=== PATIENT | male | born 1955 | race Two or more races ===

== ENCOUNTER 2017-11-08 21:04 | Emergency (ER) | payer OTHER ==
--- NOTE | 2017-11-08 21:17 | EDM.PDOC ---
ED HPI GENERAL MEDICAL PROBLEM - General Stated Complaint: NOT FEELING WELL Time Seen by Provider: 11/08/17 21:12 - History of Present Illness INITIAL COMMENTS - FREE TEXT/NARRATIVE: HISTORY AND PHYSICAL: History of present illness: Patient is a 62-year-old male presents with concern of fever chills and body aches with cough over last 3 days he denies chest pain nausea vomiting diarrhea or other concern Review of systems: As per history of present illness and below otherwise all systems reviewed and negative. Past medical history: As per history of present illness and as reviewed below otherwise noncontributory. Surgical history: As per history of present illness and as reviewed below otherwise noncontributory. Social history: No reported history of drug or alcohol abuse. Family history: As per history of present illness and as reviewed below otherwise noncontributory. Physical exam: HEENT: Atraumatic, normocephalic, pupils reactive, negative for conjunctival pallor or scleral icterus, mucous membranes moist, throat clear, neck supple, nontender, trachea midline. Lungs: Clear to auscultation, breath sounds equal bilaterally, chest nontender. Heart: S1S2, regular, negative for clicks, rubs, or JVD. Abdomen: Soft, nondistended, nontender. Negative for masses or hepatosplenomegaly. Negative for costovertebral tenderness. Pelvis: Stable nontender. Genitourinary: Deferred. Rectal: Deferred. Extremities: Atraumatic, negative for cords or calf pain. Neurovascular unremarkable. Neuro: Awake, alert, oriented. Cranial nerves II through XII unremarkable. Cerebellum unremarkable. Motor and sensory unremarkable throughout. Exam nonfocal. Diagnostics: Influenza screen chest x-ray Therapeutics: None Impression: 1 viral syndrome Definitive disposition and diagnosis as appropriate pending reevaluation and review of above. - Related Data Allergies Allergy/AdvReac Type Severity Reaction Status Date / Time No Known Allergies Allergy Verified 11/08/17 21:22 Home Meds: Home Meds . [No Known Home Meds] 11/08/17 [History] ED ROS GENERAL - Review of Systems Review Of Systems: ROS reveals no pertinent complaints other than HPI. ED EXAM, GENERAL - Physical Exam Exam: See Below (See dictation) Course - Vital Signs Last Recorded V/S: Last Vital Signs Temp 38.4 C H 11/08/17 21:20 Pulse 111 H 11/08/17 21:20 Resp 12 11/08/17 21:20 BP 125/69 11/08/17 21:20 Pulse Ox 94 L 11/08/17 21:20 - Orders/Labs/Meds Orders: Active Orders 24 hr Category Date Time Status Chest 1V Frontal [CR] Stat Exams 11/08/17 21:15 Ordered Departure - Departure Time of Disposition: 22:05 Disposition: Home, Self-Care 01 Condition: Good Clinical Impression: Influenza - Discharge Information Referrals: PCP,None [Primary Care Provider] - Additional Instructions: The following information is given to patients seen in the emergency department who are being discharged to home. This information is to outline your options for follow-up care. We provide all patients seen in our emergency department with a follow-up referral. The need for follow-up, as well as the timing and circumstances, are variable depending upon the specifics of your emergency department visit. If you don't have a primary care physician on staff, we will provide you with a referral. We always advise you to contact your personal physician following an emergency department visit to inform them of the circumstance of the visit and for follow-up with them and/or the need for any referrals to a consulting specialist. The emergency department will also refer you to a specialist when appropriate. This referral assures that you have the opportunity for followup care with a specialist. All of these measure are taken in an effort to provide you with optimal care, which includes your followup. Under all circumstances we always encourage you to contact your private physician who remains a resource for coordinating your care. When calling for followup care, please make the office aware that this follow-up is from your recent emergency room visit. If for any reason you are refused follow-up, please contact the [facility] emergency department at and asked to speak to the emergency department charge nurse. [facility] [address] [place] [id number] Push fluids Motrin/Tylenol as directed follow-up primary medical doctor and/or clinic above as needed as discussed and return as needed as discussed. - My Orders Last 24 Hours: My Active Orders 11/08/17 21:15 Chest 1V Frontal [CR] Stat - Assessment/Plan Last 24 Hours: My Active Orders 11/08/17 21:15 Chest 1V [place] [CR] Stat
--- NOTE | 2017-11-10 18:30 | CR ---
EXAM DATE: 11/08/17 PATIENT'S AGE: 62 Patient: PAVAN SANCHES Facility: [place], [place] Site . Site : 1955 Study: XRay Chest [id number]/20/2018 10:15:44 PM Ordering Physician: Demar Trammell Final Report: INDICATION: Chest pain, shortness of breath TECHNIQUE: Chest radiograph 1 view COMPARISON: None FINDINGS: Mediastinum: The heart silhouette is normal in size and morphology. The mediastinum is normal in appearance. Lungs: Trace linear atelectasis noted in the left lung base. No sign of pleural effusion seen. No pneumothorax is identified. Bones and soft tissue: Unremarkable for age. IMPRESSION: 1. No acute cardiopulmonary disease is seen. Dictated by: Manolo Rivas MD @ 11/08/2017 22:26:20 (Electronic Signature) Report Signed by Proxy. JULIA
== END 2017-11-08 22:57 | disposition home or self-care (01) ==
LOC: MW.ED 21:04
DX: J10.1 Influenza due to other identified influenza virus with other respiratory manifestations (principal); B34.9 Viral infection, unspecified
CPT/HCPCS: 71045; 71045-26; 87804; 99283

== ENCOUNTER 2018-02-24 00:46 | Emergency (ER) | payer SELFPAY ==
[2018-02-24] MEDS ORDERED: Albuterol/Ipratropium 3.0-0.5 MG/3 ML Neb Soln ONE (01:11)
[2018-02-24] MEDS ORDERED: predniSONE 20 MG Tab ONE (01:24)
--- NOTE | 2018-02-24 18:46 | CR ---
EXAM DATE: 02/24/18 PATIENT'S AGE: 62 Patient: PAVAN SANCHES Facility: [place] Site . Site : 1955 Study: XRay Chest [id number]/8/2018 1:38:54 AM Ordering Physician: Nellie Final Report: INDICATION: Cough, CP TECHNIQUE: Chest 2 views COMPARISON: November 08, 2017 FINDINGS: Cardiovascular and mediastinum: Heart size and vasculature are normal in caliber and appearance. Mediastinum is within normal limits. Lungs and pleural spaces: No focal consolidation. No sign of pleural effusion. No pneumothorax. Bones and soft tissues: No significant findings. IMPRESSION: No acute cardiopulmonary disease. Dictated by Winston Hairston MD @ 02/24/2018 2:12:03 AM Dictated by: Winston Hairston MD @ 02/24/2018 02:12:10 (Electronic Signature) Report Signed by Proxy. [facility]
== END 2018-02-24 02:25 | disposition home or self-care (01) ==
LOC: MW.ED 00:46
DX: J20.9 Acute bronchitis, unspecified (principal)
CPT/HCPCS: 71046; 99284; A9270; 99283

== ENCOUNTER 2018-03-07 05:39 | Observation (INO) | payer SELFPAY ==
[2018-03-07] MEDS ORDERED: Sodium Chloride 0.9% 1,000 ML IV ONE (05:40)
[2018-03-07] MEDS ORDERED: Albuterol 0.083% 2.5 MG/3 ML Neb Soln NEB ONE (05:40)
[2018-03-07] MEDS ORDERED: Magnesium Sulfate/Water 2 GM in Premix Bag 1 BAG IV ONE (05:40)
[2018-03-07] MEDS ORDERED: methylPREDNISolone Sodium Succinate 125 MG/2 ML SDV IVPUSH ONE ×2 (05:40→05:49)
[2018-03-07] MEDS ORDERED: EPINEPHrine 1 MG/ML SDV IM ONE (05:43)
--- NOTE | 2018-03-07 05:46 | EDM.PDOC ---
<Vincent Martin - Last Filed: 03/07/18 06:49> ED HPI GENERAL MEDICAL PROBLEM - General Chief Complaint: Respiratory Problem Stated Complaint: AMBULANCE Time Seen by Provider: 03/07/18 05:44 Source of Information: Reports: Patient - History of Present Illness INITIAL COMMENTS - FREE TEXT/NARRATIVE: HISTORY AND PHYSICAL: History of present illness: [Patient with asthma like symptoms over the last 5 months after coming from [place] in October presents with respiratory distress he did receive 2 DuoNeb's in the EMS unit he is been seen several times through the ER with his travel from [place] and the chronic wheeze requiring albuterol HFA seems like possible fungal or coccidiosis infection possibly as the patient has no prior history of asthma No fever chills sweats no chest pain he does complain of chest tightness and shortness of breath he is able to speak but has labored breathing no pursed lip breathing or tripoding ] Review of systems: As per history of present illness and below otherwise all systems reviewed and negative. Past medical history: As per history of present illness and as reviewed below otherwise noncontributory. Surgical history: As per history of present illness and as reviewed below otherwise noncontributory. Social history: No reported history of drug or alcohol abuse. Family history: As per history of present illness and as reviewed below otherwise noncontributory. Physical exam: HEENT: Atraumatic, normocephalic, pupils reactive, negative for conjunctival pallor or scleral icterus, mucous membranes moist, throat clear, neck supple, nontender, trachea midline. Lungs: Clear to auscultation but diminished, breath sounds equal bilaterally, chest nontender. Heart: S1S2, regular, negative for clicks, rubs, or JVD. Abdomen: Soft, nondistended, nontender. Negative for masses or hepatosplenomegaly. Negative for costovertebral tenderness. Pelvis: Stable nontender. Genitourinary: Deferred. Rectal: Deferred. Extremities: Atraumatic, negative for cords or calf pain. Neurovascular unremarkable. Neuro: Awake, alert, oriented. Cranial nerves II through XII unremarkable. Cerebellum unremarkable. Motor and sensory unremarkable throughout. Exam nonfocal. Diagnostics: [CBC CMP UA troponin EKG Chest 1 view ] Therapeutics: [ DuoNeb 2 per EMS Solu-Medrol 125 mg IV 2 Epinephrine 0.5 mgIV Magnesium sulfate 2 g IV Continuous albuterol neb 1 L normal saline bolus ] Patient will have to be signed out for final disposition with Dr. Jacobs's lab is pending at this time Impression: Respiratory distress resolved Shortness of breath--improved post above Bilateral wheeze-improved Definitive disposition and diagnosis as appropriate pending reevaluation and review of above. - Related Data Allergies Allergy/AdvReac Type Severity Reaction Status Date / Time No Known Allergies Allergy Verified 02/24/18 06:33 Home Meds: Home Meds . [No Known Home Meds] 11/08/17 [History] Past Medical History - Past Surgical History GI Surgical History: Reports: Appendectomy Social & Family History - Caffeine Use Caffeine Use: Reports: Coffee Course - Vital Signs Last Recorded V/S: Last Vital Signs Temp 98.1 F 03/07/18 10:30 Pulse 89 03/07/18 10:30 Resp 18 03/07/18 10:30 BP 137/84 03/07/18 06:10 Pulse Ox 94 L 03/07/18 10:30 - Orders/Labs/Meds Orders: Active Orders 24 hr Category Date Time Status EKG Documentation Completion [RC] STAT Care 03/07/18 05:40 Active RT Aerosol Therapy [RC] ASDIRECTED Care 03/07/18 05:40 Active RT Aerosol Therapy [RC] ASDIRECTED Care 03/07/18 09:16 Active Chest 1V Frontal [CR] Stat Exams 03/07/18 05:40 Taken CULTURE SPUTUM + SMEAR [RM] Stat Lab 03/07/18 11:22 Ordered UA W/MICROSCOPIC [URIN] Stat Lab 03/07/18 06:32 Ordered Labs: Laboratory Tests 03/07/18 03/07/18 03/07/18 Range/Units 05:50 05:50 06:32 WBC 11.15 H (4.0-11.0) K/uL RBC 5.87 (4.50-5.90) M/uL Hgb 14.7 (13.0-17.0) g/dL Hct 44.4 (38.0-50.0) % MCV 75.6 L (80.0-98.0) fL MCH 25.0 L (27.0-32.0) pg MCHC 33.1 (31.0-37.0) g/dL RDW Std Deviation 41.4 (28.0-62.0) fl RDW Coeff of Roberta 15 (11.0-15.0) % Plt Count 285 (150-400) K/uL MPV 9.50 (7.40-12.00) fL Neut % (Auto) 39.9 L (48.0-80.0) % Lymph % (Auto) 44.6 H (16.0-40.0) % [place] % (Auto) 7.7 (0.0-15.0) % Eos % (Auto) 7.6 H (0.0-7.0) % Baso % (Auto) 0.2 (0.0-1.5) % Neut # (Auto) 4.5 (1.4-5.7) K/uL Lymph # (Auto) 5.0 H (0.6-2.4) K/uL [place] # (Auto) 0.9 H (0.0-0.8) K/uL Eos # (Auto) 0.9 H (0.0-0.7) K/uL Baso # (Auto) 0.0 (0.0-0.1) K/uL Nucleated RBC % 0.0 /100WBC Nucleated RBCs # 0 K/uL Sodium 141 (136-148) mmol/L Potassium 4.1 (3.5-5.1) mmol/L Chloride 106 (98-107) mmol/L Carbon Dioxide 26.5 (21.0-32.0) mmol/L BUN 13 (7.0-18.0) mg/dL Creatinine 1.3 (0.8-1.3) mg/dL Est Cr Clr Drug Dosing TNP Estimated GFR (MDRD) 56.3 ml/min Glucose 150 H (74-106) mg/dL Calcium 9.0 (8.5-10.1) mg/dL Total Bilirubin 0.2 (0.2-1.0) mg/dL AST 21 (15-37) IU/L ALT 26 (14-63) IU/L Alkaline Phosphatase 68 (46-116) U/L Troponin I < 0.050 (0.000-0.056) ng/mL Total Protein 7.2 (6.4-8.2) g/dL Albumin 3.8 (3.4-5.0) g/dL Globulin 3.4 (2.0-3.5) g/dL Albumin/Globulin Ratio 1.1 L (1.3-2.8) Urine Color DARK YELLOW Urine Appearance SLT CLOUDY Urine pH 5.0 (5.0-8.0) Ur Specific [place] >= 1.030 (1.001-1.035) Urine Protein 30 (NEGATIVE) mg/dL Urine Glucose (UA) NEGATIVE (NEGATIVE) mg/dL Urine Ketones NEGATIVE (NEGATIVE) mg/dL Urine Occult Blood NEGATIVE (NEGATIVE) Urine Nitrite NEGATIVE (NEGATIVE) Urine Bilirubin SMALL H (NEGATIVE) Urine Ictotest NEGATIVE Urine Urobilinogen 0.2 (<2.0) EU/dL Ur Leukocyte Esterase NEGATIVE (NEGATIVE) Urine RBC 1-2 (0-2/HPF) Urine WBC 3-5 (0-5/HPF) Ur Epithelial Cells RARE (NONE-FEW) Urine Bacteria FEW (NEGATIVE) Meds: Medications Discontinued Medications Generic Name Dose Route Start Last Admin Trade Name Freq PRN Reason Stop Dose Admin Albuterol 2.5 mg 03/07/18 05:40 03/07/18 06:02 Proventil Neb Soln NEB 03/07/18 05:41 2.5 mg ONETIME ONE Administration Albuterol/Ipratropium 3 ml 03/07/18 09:16 03/07/18 09:39 Duoneb 3.0-0.5 Mg/3 Ml NEB 03/07/18 09:17 3 ml ONETIME ONE Administration Epinephrine HCl 0.5 mg 03/07/18 05:43 03/07/18 05:46 Adrenalin IM 03/07/18 05:44 0.5 mg ONETIME ONE Administration Magnesium Sulfate 2 gm/ Premix 50 mls @ 25 mls/hr 03/07/18 05:40 03/07/18 05: 58 IV 03/07/18 07:39 25 mls/hr ONETIME ONE Administration Sodium Chloride 1,000 mls @ 999 mls/hr 03/07/18 05:40 03/07/18 05:56 Normal Saline IV 03/07/18 06:40 999 mls/hr STAT ONE Administration Methylprednisolone Sodium Succinate 125 mg 03/07/18 05:40 03/07/18 06:02 Solu-Medrol IVPUSH 03/07/18 05:41 125 mg ONETIME ONE Administration Methylprednisolone Sodium Succinate 125 mg 03/07/18 05:49 03/07/18 06:03 Solu-Medrol IVPUSH 03/07/18 05:50 125 mg ONETIME ONE Administration Departure - Departure Disposition: Admitted As Inpatient 68 Clinical Impression: Respiratory distress - Discharge Information Referrals: PCP,None [Primary Care Provider] - Forms: ED Department Discharge - My Orders Last 24 Hours: My Active Orders 03/07/18 09:16 RT Aerosol Therapy [RC] ASDIRECTED 03/07/18 11:22 CULTURE SPUTUM + SMEAR [RM] Stat - Assessment/Plan Last 24 Hours: My Active Orders 03/07/18 09:16 RT Aerosol Therapy [RC] ASDIRECTED 03/07/18 11:22 CULTURE SPUTUM + SMEAR [RM] Stat <Parish Jacobs - Last Filed: 03/07/18 11:58> ED HPI GENERAL MEDICAL PROBLEM - General Source of Information: Reports: Patient - History of Present Illness INITIAL COMMENTS - FREE TEXT/NARRATIVE: Dr. Jacobs assuming care of patient at 07 100. I've been briefed on patient's current status and closing physical signs and symptoms, labs, and pertinent imaging from Dr. Baltazar. I personally examined patient and reviewed above findings. Chest x-ray did show mild basilar subsegmental atelectasis. Sputum culture ordered for possible coccidioidomycosis. Patient still requiring 1-2 L O2 per nasal canula. Did give additional duo-neb with improvement of symptoms for a limited time but soon after requiring 1-2 L O2 per nasal cannula. 1155- Secondary to the patient continued to desat without 1-2 L of oxygen per nasal cannula. I did consult hospitalist for admission. Hospitalist did accept the patient for ICU observation. I do think this may be some kind of fungal or coccidioidomycosis type of presentation as the patient has had multiple episodes when he travels back and forth between [place] and here. He does have home albuterol but secondary to above observation is warranted. Hospitalist agrees and accepts patient. ED ROS GENERAL - Review of Systems Review Of Systems: See Below ED EXAM, GENERAL - Physical Exam Exam: See Below Departure - Departure Time of Disposition: 11:57 Condition: Fair - My Orders Last 24 Hours: My Active Orders 03/07/18 09:16 RT Aerosol Therapy [RC] ASDIRECTED 03/07/18 11:22 CULTURE SPUTUM + SMEAR [RM] Stat - Assessment/Plan Last 24 Hours: My Active Orders 03/07/18 09:16 RT Aerosol Therapy [RC] ASDIRECTED 03/07/18 11:22 CULTURE SPUTUM + SMEAR [RM] Stat
[2018-03-07 06:51] LABS: CHLORIDE,CL 106 mmol/L (98-107); SODIUM,NA 141 mmol/L (136-148)
[2018-03-07] MEDS ORDERED: Albuterol/Ipratropium 3.0-0.5 MG/3 ML Neb Soln NEB ONE (09:16)
[2018-03-07] MEDS ORDERED: Acetaminophen/HYDROcodone 325-5 MG Tab PO PRN (13:43)
[2018-03-07] MEDS ORDERED: Sodium Chloride 0.9% 2.5 ML Syringe FLUSH PRN (13:43)
[2018-03-07] MEDS ORDERED: Sodium Chloride 0.9% 10 ML Syringe FLUSH PRN (13:43)
[2018-03-07] MEDS ORDERED: Ondansetron 4 MG/2 ML SDV IVPUSH PRN (13:43)
[2018-03-07] MEDS ORDERED: Docusate Sodium 100 MG Cap PO PRN (13:43)
[2018-03-07] MEDS: methylPREDNISolone Sodium Succinate 125 MG/2 ML SDV IVPUSH SCH ×2 (14:13→20:01)
[2018-03-07] MEDS: Benzonatate 100 MG Cap PO PRN ×2 (14:13→22:15)
[2018-03-07] MEDS: Piperacillin/Tazobactam 4.5 GM in Sodium Chloride 0.9% 100 ML IV SCH ×2 (14:19→20:06)
[2018-03-07] MEDS: Fluticasone/Salmeterol 250-50 MCG Inhalation Powder 14/Diskus INH SCH ×2 (15:01→21:23)
[2018-03-07] MEDS: guaiFENesin 100 MG/5 ML Soln 10 ML UD Cup PO PRN (20:11)
--- NOTE | 2018-03-07 21:08 | PCM.HP ---
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 He states he had problems with cough this year and SOB , wheezing , he has cough productive of green phlegm, cough is intractable and patient says his ribs are sore from coughing. His cough started on November 14 , as per patient and is productive of green phlegm.Patient denies smoking. Onset of Symptoms: Reports: Gradual - Related Data Allergies/Adverse Reactions: Allergies Allergy/AdvReac Type Severity Reaction Status Date / Time No Known Allergies Allergy Verified 02/24/18 06:33 Home Medications: Home Meds Albuterol Sulfate [Proair Respiclick] 1 puff INH Q4H PRN 03/07/18 [History] Promethazine HCl/Codeine [Prometh-Codein 6.25-10 mg/5 ml] 10 ml PO BEDTIME PRN 03/07/18 [History] predniSONE [Prednisone] 2 tab PO DAILY 03/07/18 [History] Past Medical History - Past Surgical History GI Surgical History: Reports: Appendectomy Social & Family History - Family History Family Medical History: Noncontributory - Tobacco Use Smoking Status *Q: Never Smoker - Caffeine Use Caffeine Use: Reports: Coffee, Soda - Recreational Drug Use Recreational Drug Use: No H&P Review of Systems - Review of Systems: Review Of Systems: See Below General: Reports: Fatigue. Denies: Fever, Chills, Malaise, Weakness, Night Sweats, Diaphoresis, Decreased Appetite, Weight Loss, Weight Gain HEENT: Reports: No Symptoms Pulmonary: Reports: Shortness of Breath, Wheezing, Cough, Sputum (green) Cardiovascular: Reports: No Symptoms Gastrointestinal: Reports: No Symptoms Genitourinary: Reports: No Symptoms Musculoskeletal: Reports: No Symptoms Skin: Reports: No Symptoms Psychiatric: Reports: No Symptoms Neurological: Reports: No Symptoms Hematologic/Lymphatic: Reports: No Symptoms Immunologic: Reports: No Symptoms Exam - Exam Exam: See Below - Vital Signs Vital Signs: Last Vital Signs Temp 98 F 03/07/18 20:00 Pulse 91 03/07/18 20:00 Resp 20 03/07/18 20:00 BP 97/66 03/07/18 20:00 Pulse Ox 98 03/07/18 20:00 Weight: 184 lb 8 oz - Exam Quality Assessment: Supplemental Oxygen General: Alert, Oriented HEENT: Conjunctiva Clear, EOMI Neck: Supple, Trachea Midline Lungs: Clear to Auscultation, Normal Respiratory Effort Cardiovascular: Regular Rate, Regular Rhythm, Normal S1, Normal S2 GI/Abdominal Exam: Normal Bowel Sounds, Soft, Non-Tender, No Organomegaly (Male) Exam: No Hernia Back Exam: Normal Inspection Extremities: Normal Inspection Skin: Warm, Dry, Intact Neurological: Cranial Nerves Intact Neuro Extensive - Mental Status: Alert, Oriented x3 Psychiatric: Alert, Normal Affect - Patient Data Lab Results Last 24 hrs: Laboratory Results - last 24 hr 03/07/18 03/07/18 03/07/18 Range/Units 05:50 05:50 05:50 WBC 11.15 H (4.0-11.0) K/uL RBC 5.87 (4.50-5.90) M/uL Hgb 14.7 (13.0-17.0) g/dL Hct 44.4 (38.0-50.0) % MCV 75.6 L (80.0-98.0) fL MCH 25.0 L (27.0-32.0) pg MCHC 33.1 (31.0-37.0) g/dL RDW Std Deviation 41.4 (28.0-62.0) fl RDW Coeff of Roberta 15 (11.0-15.0) % Plt Count 285 (150-400) K/uL MPV 9.50 (7.40-12.00) fL Neut % (Auto) 39.9 L (48.0-80.0) % Lymph % (Auto) 44.6 H (16.0-40.0) % [place] % (Auto) 7.7 (0.0-15.0) % Eos % (Auto) 7.6 H (0.0-7.0) % Baso % (Auto) 0.2 (0.0-1.5) % Neut # (Auto) 4.5 (1.4-5.7) K/uL Lymph # (Auto) 5.0 H (0.6-2.4) K/uL [place] # (Auto) 0.9 H (0.0-0.8) K/uL Eos # (Auto) 0.9 H (0.0-0.7) K/uL Baso # (Auto) 0.0 (0.0-0.1) K/uL Nucleated RBC % 0.0 /100WBC Nucleated RBCs # 0 K/uL ESR 1 (0-19) mm/hr ABG pH (7.35-7.45) ABG pCO2 (35-45) mmHG ABG pO2 (75-100) mmHG ABG HCO3 (22-26) mEq/L ABG Total CO2 ABG Base Excess (-2.0-2.0) Sodium 141 (136-148) mmol/L Potassium 4.1 (3.5-5.1) mmol/L Chloride 106 (98-107) mmol/L Carbon Dioxide 26.5 (21.0-32.0) mmol/L BUN 13 (7.0-18.0) mg/dL Creatinine 1.3 (0.8-1.3) mg/dL Est Cr Clr Drug Dosing TNP Estimated GFR (MDRD) 56.3 ml/min Glucose 150 H (74-106) mg/dL Calcium 9.0 (8.5-10.1) mg/dL Total Bilirubin 0.2 (0.2-1.0) mg/dL AST 21 (15-37) IU/L ALT 26 (14-63) IU/L Alkaline Phosphatase 68 (46-116) U/L Troponin I < 0.050 (0.000-0.056) ng/mL Total Protein 7.2 (6.4-8.2) g/dL Albumin 3.8 (3.4-5.0) g/dL Globulin 3.4 (2.0-3.5) g/dL Albumin/Globulin Ratio 1.1 L (1.3-2.8) Urine Color Urine Appearance Urine pH (5.0-8.0) Ur Specific [place] (1.001-1.035) Urine Protein (NEGATIVE) mg/dL Urine Glucose (UA) (NEGATIVE) mg/dL Urine Ketones (NEGATIVE) mg/dL Urine Occult Blood (NEGATIVE) Urine Nitrite (NEGATIVE) Urine Bilirubin (NEGATIVE) Urine Ictotest Urine Urobilinogen (<2.0) EU/dL Ur Leukocyte Esterase (NEGATIVE) Urine RBC (0-2/HPF) Urine WBC (0-5/HPF) Ur Epithelial Cells (NONE-FEW) Urine Bacteria (NEGATIVE) 03/07/18 03/07/18 Range/Units 06:32 14:52 WBC (4.0-11.0) K/uL RBC (4.50-5.90) M/uL Hgb (13.0-17.0) g/dL Hct (38.0-50.0) % MCV (80.0-98.0) fL MCH (27.0-32.0) pg MCHC (31.0-37.0) g/dL RDW Std Deviation (28.0-62.0) fl RDW Coeff of Roberta (11.0-15.0) % Plt Count (150-400) K/uL MPV (7.40-12.00) fL Neut % (Auto) (48.0-80.0) % Lymph % (Auto) (16.0-40.0) % [place] % (Auto) (0.0-15.0) % Eos % (Auto) (0.0-7.0) % Baso % (Auto) (0.0-1.5) % Neut # (Auto) (1.4-5.7) K/uL Lymph # (Auto) (0.6-2.4) K/uL [place] # (Auto) (0.0-0.8) K/uL Eos # (Auto) (0.0-0.7) K/uL Baso # (Auto) (0.0-0.1) K/uL Nucleated RBC % /100WBC Nucleated RBCs # K/uL ESR (0-19) mm/hr ABG pH 7.387 (7.35-7.45) ABG pCO2 34 L (35-45) mmHG ABG pO2 79 (75-100) mmHG ABG HCO3 21 L (22-26) mEq/L ABG Total CO2 18.5 ABG Base Excess -3.6 L (-2.0-2.0) Sodium (136-148) mmol/L Potassium (3.5-5.1) mmol/L Chloride (98-107) mmol/L Carbon Dioxide (21.0-32.0) mmol/L BUN (7.0-18.0) mg/dL Creatinine (0.8-1.3) mg/dL Est Cr Clr Drug Dosing Estimated GFR (MDRD) ml/min Glucose (74-106) mg/dL Calcium (8.5-10.1) mg/dL Total Bilirubin (0.2-1.0) mg/dL AST (15-37) IU/L ALT (14-63) IU/L Alkaline Phosphatase (46-116) U/L Troponin I (0.000-0.056) ng/mL Total Protein (6.4-8.2) g/dL Albumin (3.4-5.0) g/dL Globulin (2.0-3.5) g/dL Albumin/Globulin Ratio (1.3-2.8) Urine Color DARK YELLOW Urine Appearance SLT CLOUDY Urine pH 5.0 (5.0-8.0) Ur Specific [place] >= 1.030 (1.001-1.035) Urine Protein 30 (NEGATIVE) mg/dL Urine Glucose (UA) NEGATIVE (NEGATIVE) mg/dL Urine Ketones NEGATIVE (NEGATIVE) mg/dL Urine Occult Blood NEGATIVE (NEGATIVE) Urine Nitrite NEGATIVE (NEGATIVE) Urine Bilirubin SMALL H (NEGATIVE) Urine Ictotest NEGATIVE Urine Urobilinogen 0.2 (<2.0) EU/dL Ur Leukocyte Esterase NEGATIVE (NEGATIVE) Urine RBC 1-2 (0-2/HPF) Urine WBC 3-5 (0-5/HPF) Ur Epithelial Cells RARE (NONE-FEW) Urine Bacteria FEW (NEGATIVE) Result Diagrams: 03/07/18 05:50 03/07/18 05:50 - Problem List (1) Wheezing on auscultation SNOMED Code(s): 02440113, 201828782 ICD Code: R06.2 - WHEEZING Status: Acute Current Visit: Yes (2) Respiratory distress SNOMED Code(s): 068033251 ICD Code: R06.03 - ACUTE RESPIRATORY DISTRESS Status: Acute Current Visit : Yes (3) Chronic bronchitis with acute exacerbation SNOMED Code(s): 130175907 ICD Code: J20.9 - ACUTE BRONCHITIS, UNSPECIFIED; J42 - UNSPECIFIED CHRONIC BRONCHITIS Status: Acute Current Visit: Yes Problem List Initiated/Reviewed/Updated: Yes Orders Last 24hrs: Active Orders 24 hr Category Date Time Status Admission Status [Patient Status] [ADT] Routine ADT 03/07/18 11:58 Active Oxygen Therapy [RC] PRN Care 03/07/18 13:43 Active RT Aerosol Therapy [RC] ASDIRECTED Care 03/07/18 05:40 Active RT Aerosol Therapy [RC] ASDIRECTED Care 03/07/18 09:16 Active RT Post Treatment Assessment [RC] Click to Edit Care 03/07/18 13:51 Active RT Pre-Treatment Assessment [RC] Click to Edit Care 03/07/18 13:51 Active Up ad Tanja [RC] ASDIRECTED Care 03/07/18 13:43 Active Vital Signs [RC] Q4H Care 03/07/18 13:43 Active Regular Diet [DIET] Diet 03/07/18 Dinner Active Chest 1V Frontal [CR] Stat Exams 03/07/18 05:40 Taken Chest wo Cont [CT] Routine Exams 03/07/18 13:47 Taken CBC WITH AUTO DIFF [HEME] AM Lab 03/08/18 05:11 Ordered COMPREHENSIVE METABOLIC PN,CMP [CHEM] AM Lab 03/08/18 05:11 Ordered CULTURE SPUTUM + SMEAR [RM] Stat Lab 03/07/18 11:22 Ordered UA W/MICROSCOPIC [URIN] Stat Lab 03/07/18 06:32 Ordered Acetaminophen/HYDROcodone [[place] 325-5 MG] Med 03/07/18 13:43 Active 2 tab PO Q4H PRN Benzonatate [Tessalon Perles] Med 03/07/18 13:50 Active 200 mg PO TID PRN Docusate Sodium [Colace] Med 03/07/18 13:43 Active 100 mg PO BID PRN Fluticasone/Salmeterol [Advair Diskus 250-50] Med 03/07/18 14:00 Active 1 puff INH BID Ondansetron [Zofran] Med 03/07/18 13:43 Active 4 mg IVPUSH Q4H PRN Piperacillin/Tazobactam [Piperacil-Tazobact] 4.5 gm Med 03/07/18 14:00 Active Sodium Chloride 0.9% [Normal Saline] 100 ml IV Q6H Sodium Chloride 0.9% [Saline Flush] Med 03/07/18 13:43 Active 10 ml FLUSH ASDIRECTED PRN Sodium Chloride 0.9% [Saline Flush] Med 03/07/18 13:43 Active 2.5 ml FLUSH ASDIRECTED PRN guaiFENesin [Robitussin] Med 03/07/18 13:49 Active 200 mg PO Q6H PRN methylPREDNISolone Sod Succ [Solu-MEDROL] Med 03/07/18 14:00 Active 60 mg IVPUSH Q6H Peripheral IV Insertion Adult [OM.PC] Routine Oth 03/07/18 13:43 Ordered Saline Lock Insert [OM.PC] Routine Oth 03/07/18 13:43 Ordered Sequential Compression Device [OM.PC] Per Unit Routine Oth 03/07/18 13:44 Ordered Resuscitation Status Routine Resus Stat 03/07/18 13:43 Ordered Medication Orders Hydrocodone Bitart/Acetaminophen ([place] 325-5 Mg) 2 tab PO Q4H PRN PRN Reason: Pain (moderate 4-6) Benzonatate (Tessalon Perles) 200 mg PO TID PRN PRN Reason: Cough Last Admin: 03/07/18 14:13 Dose: 200 mg Docusate Sodium (Colace) 100 mg PO BID PRN PRN Reason: Constipation Guaifenesin (Robitussin) 200 mg PO Q6H PRN PRN Reason: Cough Last Admin: 03/07/18 20:11 Dose: 200 mg Piperacillin Sod/Tazobactam (Sod 4.5 gm/ Sodium Chloride) 100 mls @ 100 mls/hr IV Q6H [facility] Last Admin: 03/07/18 20:06 Dose: 100 mls/hr Infusion: 03/07/18 15:19 Dose: 100 mls/hr Admin: 03/07/18 14:19 Dose: 100 mls/hr Methylprednisolone Sodium Succinate (Solu-Medrol) 60 mg IVPUSH Q6H [facility] Last Admin: 03/07/18 20:01 Dose: 60 mg Admin: 03/07/18 14:13 Dose: 60 mg Ondansetron HCl (Zofran) 4 mg IVPUSH Q4H PRN PRN Reason: Nasal Dryness Fluticasone/Salmeterol (Advair Diskus 250-50) 1 puff INH BID LYUBOV Last Admin: 03/07/18 15:01 Dose: 1 disk Sodium Chloride (Saline Flush) 10 ml FLUSH ASDIRECTED PRN PRN Reason: Keep Vein Open Sodium Chloride (Saline Flush) 2.5 ml FLUSH ASDIRECTED PRN PRN Reason: Keep Vein Open Ct chest without iv contrast shows telectasis versus pulmonary fibrosis at the lung bases and bronchial changes consistent with chronic bronchitis. Assessment and plan 1) chronic bronchitis and wheezing likely COPD exacerbation 2) hypoxic respiratory failure 3) DVT profilaxis 4) GI profilaxis plan: will admit patient to ICU to observation will start patient on solumedrol 60 mg iv q 6 h , duoneb nebulizer treatment q 4 h , advair 250/50 1 puff inh BID, zosyn 4.5 gramsiv q 6 h , blood culture , sputum culture , Eicu consult robitussin 10 cc po TID tessalon 200 mg po q 8 h patient will need referral to pulmonology for dvtprofilaxis will give patient heparin sq for Gi profilaxis will start patient on protonix 40 mg po daily
[2018-03-07] MEDS ORDERED: Albuterol/Ipratropium 3.0-0.5 MG/3 ML Neb Soln NEB PRN (21:29)
[2018-03-08] MEDS: methylPREDNISolone Sodium Succinate 125 MG/2 ML SDV IVPUSH SCH ×3 (02:05→12:59)
[2018-03-08] MEDS: Piperacillin/Tazobactam 4.5 GM in Sodium Chloride 0.9% 100 ML IV SCH ×3 (02:05→13:00)
[2018-03-08] MEDS: Benzonatate 100 MG Cap PO PRN (06:40)
[2018-03-08 06:49] LABS: CHLORIDE,CL 107 mmol/L (98-107); SODIUM,NA 139 mmol/L (136-148)
[2018-03-08] MEDS: guaiFENesin 100 MG/5 ML Soln 10 ML UD Cup PO PRN (07:37)
[2018-03-08] MEDS: Fluticasone/Salmeterol 250-50 MCG Inhalation Powder 14/Diskus INH SCH (09:17)
--- NOTE | 2018-03-08 14:03 | PCM.DCSUM1 ---
Discharge Summary - Discharge Data Discharge Disposition: Home, Self-Care 01 Condition: Fair - Discharge Diagnosis/Problem(s) (1) Wheezing on auscultation SNOMED Code(s): 93336281, 013522105 ICD Code: R06.2 - WHEEZING Status: Acute Current Visit: Yes (2) Respiratory distress SNOMED Code(s): 933341624 ICD Code: R06.03 - ACUTE RESPIRATORY DISTRESS Status: Acute Current Visit : Yes (3) Chronic bronchitis with acute exacerbation SNOMED Code(s): 541282606 ICD Code: J20.9 - ACUTE BRONCHITIS, UNSPECIFIED; J42 - UNSPECIFIED CHRONIC BRONCHITIS Status: Acute Current Visit: Yes - Patient Instructions Diet: Usual Diet as Tolerated Activity: As Tolerated Driving: May Drive Today Showering/Bathing: May Shower Notify Provider of: Fever - Discharge Plan Prescriptions/Med Rec: Amoxicillin/Clavulanate K [Augmentin 875-125 MG] 1 tab PO BID #20 tablet Benzonatate 200 mg PO TID #30 capsule Fluticasone/Salmeterol [Advair 250-50 Diskus] 1 each IH BID #1 disk.w.dev guaiFENesin [Robitussin] 200 mg PO Q6H PRN 10 Days #1 cup PRN Reason: Cough Ipratropium/Albuterol Sulfate [Combivent Respimat Inhal [place]] 4 gm IH Q4H PRN # 1 aer.w.adap PRN Reason: wheezing , sob predniSONE 40 mg PO WITHBREAKFAST #5 tab Home Medications: Home Meds Amoxicillin/Clavulanate K [Augmentin 875-125 MG] 1 tab PO BID #20 tablet [Rx] Benzonatate 200 mg PO TID #30 capsule 03/08/18 [Rx] Fluticasone/Salmeterol [Advair 250-50 Diskus] 1 each IH BID #1 disk.w.dev [Rx] Ipratropium/Albuterol Sulfate [Combivent Respimat Inhal [place]] 4 gm IH Q4H PRN # 1 aer.w.adap 03/08/18 [Rx] guaiFENesin [Robitussin] 200 mg PO Q6H PRN 10 Days #1 cup 03/08/18 [Rx] predniSONE 40 mg PO WITHBREAKFAST #5 tab 03/08/18 [Rx] Patient Handouts: Albuterol; Ipratropium respiratory inhalation spray ( Combivent Respimat), Amoxicillin; Clavulanic Acid tablets, Fluticasone; Salmeterol inhalation powder, Guaifenesin oral solution and syrup, Chronic Bronchitis, Prednisone tablets, Acute Bronchitis, Adult, Benzonatate capsules Referrals: [facility] [Outside] - Patient Data Vitals - Most Recent: Last Vital Signs Temp 98.2 F 03/08/18 12:32 Pulse 88 03/08/18 12:32 Resp 18 03/08/18 12:32 BP 96/39 L 03/08/18 12:32 Pulse Ox 93 L 03/08/18 12:32 Weight - Most Recent: 184 lb 8 oz I&O - Last 24 hours: Intake & Output 03/07/18 03/08/18 03/08/18 22:59 06:59 14:59 Intake Total 1450 100 100 Output Total 250 Balance 1200 100 100 Lab Results - Last 24 hrs: Laboratory Results - last 24 hr 03/07/18 03/07/18 03/08/18 Range/Units 05:50 14:52 05:52 WBC 21.38 H (4.0-11.0) K/uL RBC 5.34 (4.50-5.90) M/uL Hgb 13.3 (13.0-17.0) g/dL Hct 39.9 (38.0-50.0) % MCV 74.7 L (80.0-98.0) fL MCH 24.9 L (27.0-32.0) pg MCHC 33.3 (31.0-37.0) g/dL RDW Std Deviation 41.3 (28.0-62.0) fl RDW Coeff of Roberta 15 (11.0-15.0) % Plt Count 275 (150-400) K/uL MPV 9.30 (7.40-12.00) fL Neut % (Auto) 92.3 H (48.0-80.0) % Lymph % (Auto) 6.3 L (16.0-40.0) % [place] % (Auto) 1.4 (0.0-15.0) % Eos % (Auto) 0.0 (0.0-7.0) % Baso % (Auto) 0.0 (0.0-1.5) % Neut # (Auto) 19.7 H (1.4-5.7) K/uL Lymph # (Auto) 1.4 (0.6-2.4) K/uL [place] # (Auto) 0.3 (0.0-0.8) K/uL Eos # (Auto) 0.0 (0.0-0.7) K/uL Baso # (Auto) 0.0 (0.0-0.1) K/uL Nucleated RBC % 0.0 /100WBC Nucleated RBCs # 0 K/uL ESR 1 (0-19) mm/hr ABG pH 7.387 (7.35-7.45) ABG pCO2 34 L (35-45) mmHG ABG pO2 79 (75-100) mmHG ABG HCO3 21 L (22-26) mEq/L ABG Total CO2 18.5 ABG Base Excess -3.6 L (-2.0-2.0) Sodium (136-148) mmol/L Potassium (3.5-5.1) mmol/L Chloride (98-107) mmol/L Carbon Dioxide (21.0-32.0) mmol/L BUN (7.0-18.0) mg/dL Creatinine (0.8-1.3) mg/dL Est Cr Clr Drug Dosing mL/min Estimated GFR (MDRD) ml/min Glucose (74-106) mg/dL Calcium (8.5-10.1) mg/dL Total Bilirubin (0.2-1.0) mg/dL AST (15-37) IU/L ALT (14-63) IU/L Alkaline Phosphatase (46-116) U/L Total Protein (6.4-8.2) g/dL Albumin (3.4-5.0) g/dL Globulin (2.0-3.5) g/dL Albumin/Globulin Ratio (1.3-2.8) 03/08/18 Range/Units 05:52 WBC (4.0-11.0) K/uL RBC (4.50-5.90) M/uL Hgb (13.0-17.0) g/dL Hct (38.0-50.0) % MCV (80.0-98.0) fL MCH (27.0-32.0) pg MCHC (31.0-37.0) g/dL RDW Std Deviation (28.0-62.0) fl RDW Coeff of Roberta (11.0-15.0) % Plt Count (150-400) K/uL MPV (7.40-12.00) fL Neut % (Auto) (48.0-80.0) % Lymph % (Auto) (16.0-40.0) % [place] % (Auto) (0.0-15.0) % Eos % (Auto) (0.0-7.0) % Baso % (Auto) (0.0-1.5) % Neut # (Auto) (1.4-5.7) K/uL Lymph # (Auto) (0.6-2.4) K/uL [place] # (Auto) (0.0-0.8) K/uL Eos # (Auto) (0.0-0.7) K/uL Baso # (Auto) (0.0-0.1) K/uL Nucleated RBC % /100WBC Nucleated RBCs # K/uL ESR (0-19) mm/hr ABG pH (7.35-7.45) ABG pCO2 (35-45) mmHG ABG pO2 (75-100) mmHG ABG HCO3 (22-26) mEq/L ABG Total CO2 ABG Base Excess (-2.0-2.0) Sodium 139 (136-148) mmol/L Potassium 4.4 (3.5-5.1) mmol/L Chloride 107 (98-107) mmol/L Carbon Dioxide 24.1 (21.0-32.0) mmol/L BUN 14 (7.0-18.0) mg/dL Creatinine 1.1 (0.8-1.3) mg/dL Est Cr Clr Drug Dosing 64.44 mL/min Estimated GFR (MDRD) > 60.0 ml/min Glucose 165 H (74-106) mg/dL Calcium 9.1 (8.5-10.1) mg/dL Total Bilirubin 0.3 (0.2-1.0) mg/dL AST 17 (15-37) IU/L ALT 22 (14-63) IU/L Alkaline Phosphatase 47 (46-116) U/L Total Protein 6.5 (6.4-8.2) g/dL Albumin 3.3 L (3.4-5.0) g/dL Globulin 3.2 (2.0-3.5) g/dL Albumin/Globulin Ratio 1.0 L (1.3-2.8) HAKEEM Results - Last 24 hrs: Microbiology 03/07/18 21:30 Gram Stain - Preliminary Sputum - Expectorated Med Orders - Current: Current Medications Hydrocodone Bitart/Acetaminophen ([place] 325-5 Mg) 2 tab PO Q4H PRN PRN Reason: Pain (moderate 4-6) Albuterol/Ipratropium (Duoneb 3.0-0.5 Mg/3 Ml) 3 ml NEB Q4HRRT PRN PRN Reason: Wheezing Last Admin: 03/07/18 21:36 Dose: 3 ml Benzonatate (Tessalon Perles) 200 mg PO TID PRN PRN Reason: Cough Last Admin: 03/08/18 06:40 Dose: 200 mg Docusate Sodium (Colace) 100 mg PO BID PRN PRN Reason: Constipation Last Admin: 03/08/18 07:37 Dose: 100 mg Guaifenesin (Robitussin) 200 mg PO Q6H PRN PRN Reason: Cough Last Admin: 03/08/18 07:37 Dose: 200 mg Piperacillin Sod/Tazobactam (Sod 4.5 gm/ Sodium Chloride) 100 mls @ 100 mls/hr IV Q6H [facility] Last Admin: 03/08/18 13:00 Dose: 100 mls/hr Methylprednisolone Sodium Succinate (Solu-Medrol) 60 mg IVPUSH Q6H [facility] Last Admin: 03/08/18 12:59 Dose: 60 mg Ondansetron HCl (Zofran) 4 mg IVPUSH Q4H PRN PRN Reason: Nasal Dryness Fluticasone/Salmeterol (Advair Diskus 250-50) 1 puff INH BID [facility] Last Admin: 03/08/18 09:17 Dose: 1 disk Sodium Chloride (Saline Flush) 10 ml FLUSH ASDIRECTED PRN PRN Reason: Keep Vein Open Sodium Chloride (Saline Flush) 2.5 ml FLUSH ASDIRECTED PRN PRN Reason: Keep Vein Open Discontinued Medications Albuterol (Proventil Neb Soln) 2.5 mg NEB ONETIME ONE Stop: 03/07/18 05:41 Last Admin: 03/07/18 06:02 Dose: 2.5 mg Albuterol/Ipratropium (Duoneb 3.0-0.5 Mg/3 Ml) 3 ml NEB ONETIME ONE Stop: 03/07/18 09:17 Last Admin: 03/07/18 09:39 Dose: 3 ml Epinephrine HCl (Adrenalin) 0.5 mg IM ONETIME ONE Stop: 03/07/18 05:44 Last Admin: 03/07/18 05:46 Dose: 0.5 mg Magnesium Sulfate 2 gm/ Premix 50 mls @ 25 mls/hr IV ONETIME ONE Stop: 03/07/18 07:39 Last Admin: 03/07/18 05:58 Dose: 25 mls/hr Sodium Chloride (Normal Saline) 1,000 mls @ 999 mls/hr IV STAT ONE Stop: 03/07/18 06:40 Last Admin: 03/07/18 05:56 Dose: 999 mls/hr Methylprednisolone Sodium Succinate (Solu-Medrol) 125 mg IVPUSH ONETIME ONE Stop: 03/07/18 05:41 Last Admin: 03/07/18 06:02 Dose: 125 mg Methylprednisolone Sodium Succinate (Solu-Medrol) 125 mg IVPUSH ONETIME ONE Stop: 03/07/18 05:50 Last Admin: 03/07/18 06:03 Dose: 125 mg
--- NOTE | 2018-03-09 10:24 | CR ---
EXAM DATE: 03/07/18 PATIENT'S AGE: 62 Patient: PAVAN SANCHES Facility: [place], [place] Site . Site : 1955 Study: XRay Chest [id number]/19/2018 5:48:22 AM Ordering Physician: Giovanny Kaur Final Report: INDICATION: Shortness of breath, respiratory. Distress TECHNIQUE: Chest radiograph 1 view COMPARISON: 02/24/18 FINDINGS: Moderate degradation of image quality noted due to body habitus. Mediastinum: The heart silhouette is normal in size and morphology. The mediastinum is normal in appearance. Lungs: Mild bibasilar subsegmental atelectasis is noted. No sign of pleural effusion seen. No pneumothorax is identified. Bones and soft tissue: Unremarkable for age. IMPRESSION: 1. Mild bibasilar subsegmental atelectasis is noted. Dictated by: Manolo Rivas MD @ 03/07/2018 05:51:54 (Electronic Signature) Report Signed by Proxy. JULIA
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
== END 2018-03-08 14:30 | disposition home or self-care (01) ==
LOC: MW.ED 05:39 → MW.ICU 12:00
PROVIDERS: ADMIT Internal Medicine; ATTEND Internal Medicine
DX: J20.9 Acute bronchitis, unspecified (principal); J96.91 Respiratory failure, unspecified with hypoxia; Z79.899 Other long term (current) drug therapy; Z79.51 Long term (current) use of inhaled steroids; Z57.5 Occupational exposure to toxic agents in other industries
CPT/HCPCS: 36415; 36600; 71045; 71250; 80053; 81001; 82803; 84484; 85025; 85652; 87070; 87205; 93005; 94640; 94664; 96365; 96366; 96372; 96375; 99285; A9270; J0171; J2543; J2930; J3475; J7030; J7040; 96367; 96376; G0378